=== PATIENT | female | born 1975 | race Two or more races ===

== ENCOUNTER → 2024-04-14 | Outpatient (CLI) | payer OTHER, SELFPAY ==
--- NOTE | 2024-04-14 10:15 | XR_ITS ---
Examination: Screening digital mammography, bilateral Computer aided detection 3-D breast Tomosynthesis, bilateral Date and time of exam: April 14, 2024 1026 hours Compared to mammograms dating to August 04, 2017 Indication: Screening Technique: Nonmagnified MLO, CC views of the breasts to been obtained, reconstructed from 3-D Tomosynthesis images. R2 computer aided detection program utilized for evaluation of suspicious masses and/or abnormal calcifications. 3-D Tomosynthesis images obtained. Findings: The breasts are heterogeneously dense, which may obscure small masses 4 mm focal asymmetry upper outer left breast posterior depth Benign calcifications Right retroareolar breast marker Impression: BI-RADS Category 0: Incomplete: Need additional imaging evaluation 4 mm focal asymmetry upper outer left breast posterior depth, recommend follow-up spot tomographic views of this asymmetry as well as bilateral breast sonography to complete the workup
== END | disposition home or self-care (01) ==
PROVIDERS: Referring Provider Physician Assistant; Visit Provider Physician Assistant
DX: Z12.31 Encounter for screening mammogram for malignant neoplasm of breast (principal); N64.89 Other specified disorders of breast
CPT/HCPCS: 77063; 77067

== ENCOUNTER → 2024-05-27 | Outpatient (CLI) | payer OTHER, SELFPAY ==
--- NOTE | 2024-05-27 09:00 | XR_ITS ---
Examination: Breast ultrasound complete, bilateral Date and time of exam: May 27, 2024 0914 hours INDICATIONS: History biopsy right breast 10:00 nodule June 10, 2023, negative, family history breast cancer, mammogram April 14, 2024 focal asymmetry outer left breast, left breast sonogram May 01, 2023 BI-RADS 4 suspicious mass 10:00 position right breast 21 x 16 mm Technique: Real-time grayscale ultrasonographic imaging bilateral breasts, including all 4 quadrants as well as nipple retroareolar and axillary regions. Findings: Sonographic images right breast Benign cyst 10:00 nodule lobular margins with breast biopsy marker 16 x 13 x 20 mm 11:00 nodule lobular margins 13 x 19 mm Sonographic images left breast Retroareolar nodule lobular margins 8 x 8 mm 4:00 nodule circumscribed 8 x 7 mm 4:00 nodule lobular margins 4 x 4 millimeter IMPRESSION: BI-RADS Category 4: Suspicious for malignancy Margins of the 10:00 nodule right breast remain irregular, recommend rebiopsy of this nodule under ultrasound guidance Continued 6 month bilateral breast sonography follow-up strongly recommended
--- NOTE | 2024-05-27 10:00 | XR_ITS ---
Examination: Diagnostic digital mammography, unilateral, left Computer aided detection 3-D breast Tomosynthesis, unilateral Date and time of exam: May 27, 2024 0942 hours INDICATIONS: Mammogram April 14, 2024 4 mm focal asymmetry upper outer left breast posterior depth Technique: Nonmagnified MLO, CC views of the left breast have been obtained, reconstructed from 3-D Tomosynthesis images. R2 computer aided detection program utilized for evaluation of suspicious masses and/or abnormal calcifications. 3-D Tomosynthesis images obtained. Findings: The breast is heterogeneously dense, which may obscure small masses No suspicious mass noted on the spot compression views Impression: BI-RADS category 2: Benign findings Recommend yearly follow-up mammography Please see the bilateral breast sonogram report today indicating persistent suspicious nodule 10:00 position right breast requiring ultrasound-guided breast biopsy
== END | disposition home or self-care (01) ==
PROVIDERS: PCP Physician Assistant; Referring Provider Physician Assistant; Visit Provider Physician Assistant
DX: R92.322 Mammographic fibroglandular density, left breast (principal); N63.11 Unspecified lump in the right breast, upper outer quadrant
CPT/HCPCS: 76641; 77061; 77065; G0279

== ENCOUNTER → 2024-08-08 | Outpatient (CLI) | payer OTHER, SELFPAY ==
[2024-08-05 12:39] LABS: Basophils # (Auto) 0.1 Thou/mm3 (0.0-0.2); Basophils % (Auto) 1 % (0-2.5); Eosinophils # (Auto) 0.3 Thou/mm3 (0.0-0.5); Eosinophils % (Auto) 4 % (0-10); Hematocrit 33.4 % (36.0-46.0); Hemoglobin 10.6 g/dL (12.0-16.0); Immature Granulocytes % (Auto) 0 % (0-0); Immature Granulocytes Auto 0.02 Thou/mm3 (0.00-0.00); Lymphocytes % (Auto) 29 % (10-50); Mean Corpuscular HGB Conc 31.7 g/dl (31.0-37.0); Mean Corpuscular Hemoglobin 24.1 pg (25.0-35.0); Mean Corpuscular Volume 76 fL (80-100); Monocytes # (Auto) 0.6 Thou/mm3 (0.0-0.8); Monocytes % (Auto) 8 % (0-12); Neutrophils # (Auto) 4.1 Thou/mm3 (1.8-7.7); Neutrophils % (Auto) 58 % (37-80); Nucleated Red Blood Cell % 0 /100 WBC (0); Platelet Count 355 Thou/mm3 (140-440); RDW Standard Deviation 58.5 fL (36.4-46.3); White Blood Count 7.1 Thou/mm3 (3.6-11.0)
[2024-08-05 12:55] LABS: Partial Thromboplastin Time 25.6 Seconds (22.0-36.0); Prothrombin Time 10.6 Seconds (9.0-12.2)
[2024-08-05 13:02] LABS: HCG,Qualitative Serum Negative
--- NOTE | 2024-08-08 09:30 | XR_ITS ---
Examinations: Ultrasound-guided percutaneous breast biopsy, right breast 10:00 nodule Right breast sonography limited INDICATIONS: Breast sonogram May 27, 2024 BI-RADS 4 suspicious nodule 10:00 position right breast. Exam date and time: August 08, 2024 0907 hours. Informed consent provided. Technique: A timeout was completed verifying correct patient, procedure, site, positioning, and special equipment if applicable Informed consent provided. The patient was placed in a supine position for the breast biopsy. Sonographic images of the breast were performed for localization of the suspicious nodule The patient's breast was prepped and draped in sterile fashion. Maximum sterile barrier technique, hand hygiene, ultrasound sterile technique 1% lidocaine was used to anesthetize the skin and breast adjacent to the suspicious nodule. Utilizing ultrasonographic guidance, 8 core biopsies were obtained of the suspicious nodule utilizing an 18-gauge BioPince needle. The specimens appears satisfactory. Estimated blood loss 3 cc. The patient tolerated the procedure well and there were no complications. Impression: Successful ultrasound-guided percutaneous breast biopsy, right breast 10:00 nodule.
== END | disposition home or self-care (01) ==
LOC: SCCL 08-15 11:24 → SIRX 10-04 12:55
PROVIDERS: Radiology Diagnostic Radiology; PCP Physician Assistant; Referring Provider Physician Assistant; Visit Provider Physician Assistant
DX: D24.1 Benign neoplasm of right breast (principal); Z01.812 Encounter for preprocedural laboratory examination
CPT/HCPCS: 19083; 36415; 84703; 85025; 85610; 85730

== ENCOUNTER → 2025-01-04 | Outpatient (CLI) | payer OTHER, SELFPAY ==
--- NOTE | 2025-01-04 16:35 | XR_ITS ---
Exam: elbow bilateral, 6 views Technique: Elbow AP, oblique, lateral 3 views each elbow total 6 views Exam date and time: January 04, 2025, 1648 hours INDICATIONS: Bilateral elbow pain 3 months. FINDINGS: No fracture or dislocation involving either elbow No elbow effusions Ossification at the lateral left humeral condylar region consistent with epicondylitis Minimal spurring of the coronoid processes of the ulna bilaterally IMPRESSION: Left lateral humeral condylar epicondylitis, as clinically warranted, MRI left elbow without contrast follow-up with confirm strain or tear of the extensor tendons left elbow.
--- NOTE | 2025-01-04 16:35 | XR_ITS ---
Examination: Bilateral hands, 6 views. Technique: AP, Oblique, Lateral each hand total 6 views Date and time of exam: January 04, 2025, 1646 hours INDICATION: Bilateral hand pain 3 months. FINDINGS: No fracture or dislocation involving either hand. No erosive or other significant arthritic change involving either hand. No cortical bone destruction No opaque foreign bodies IMPRESSION: No fracture or dislocation involving either hand No erosive or other significant arthritic change involving either hand
== END | disposition home or self-care (01) ==
PROVIDERS: PCP Physician Assistant; Referring Provider Physician Assistant; Visit Provider Physician Assistant
DX: M79.642 Pain in left hand (principal); M79.641 Pain in right hand; M77.12 Lateral epicondylitis, left elbow; M77.11 Lateral epicondylitis, right elbow
CPT/HCPCS: 73080; 73130

== ENCOUNTER → 2025-02-15 | Outpatient (CLI) | payer OTHER, SELFPAY ==
[2025-02-15 08:50] LABS: Anion Gap 11 (7-16); BUN/Creatinine Ratio 20 Ratio (12-20); Blood Urea Nitrogen 12 mg/dL (9-23); Calcium 9.0 mg/dL (8.3-10.6); Carbon Dioxide 25.1 mMol/L (20.0-31.0); Chloride 106 mMol/L (98-107); Creatinine (Component) 0.6 mg/dL (0.6-1.3); Glucose 107 mg/dL (74-106); Osmolality,Calculated 282 (275-295); Potassium 3.8 mMol/L (3.4-5.1); Sodium 142 mMol/L (136-145); Uric Acid 5.2 mg/dL (3.1-7.8); eGFR > 60 See Note
[2025-02-15 08:54] LABS: Sed Rate (ESR) 38 mm/hr (0-30)
[2025-02-15 15:30] LABS: RA Screen Negative (Negative)
[2025-02-22 06:39] LABS: ANA Pattern NUCLEAR, HOMOGENEOUS; ANA Screen, IFA POSITIVE (NEGATIVE); ANA Titer 1:320 titer
== END | disposition home or self-care (01) ==
LOC: COPL 07:09
PROVIDERS: PCP Physician Assistant; Referring Provider Physician Assistant; Visit Provider Physician Assistant
DX: N17.9 Acute kidney failure, unspecified (principal); M25.559 Pain in unspecified hip
CPT/HCPCS: 36415; 80048; 84550; 85652; 86038; 86039; 86430